=== PATIENT | male | born 1985 | race Caucasian/White ===

== ENCOUNTER → 2022-01-10 | Outpatient (CLI) | payer SELFPAY | LOC: M LABSMTC 09:04 | PROVIDERS: ATTEND Pediatrics | DX: Z20.822 Contact with and (suspected) exposure to COVID-19 (principal) ==

== ENCOUNTER → 2022-07-05 | Outpatient (CLI) | payer OTHER ==
[~2022-07-05] MED LIST: ISOVUE-300 61% 50ML VIAL As Ordered ONE; LIDOCAINE 1% MDV 20ML VIAL As Ordered ONE; PROHANCE 279.3MG/ML 5ML VIAL As Ordered ONE
== END ==
LOC: M RADPRO 06:52
PROVIDERS: ATTEND Physician Assistant
DX: M75.31 Calcific tendinitis of right shoulder (principal)
CPT/HCPCS: 23350; 73223; 77002; A9576; Q9967

== ENCOUNTER 2025-01-03 23:39 | Emergency (ER) | payer OTHER ==
[~2025-01-03] VITALS: Ht 175.3 cm; Wt 102.3 kg
[2025-01-04] MEDS: KETOROLAC 30 MG/ML 1ML VIAL IV ONE ×2 (00:03→12:13)
[2025-01-04 00:06] LABS: BASO # 0.1 10^3/uL (0.0-0.2); BASO % 0.6 % (0.0-1.0); EOS # 0.2 10^3/uL (0.0-0.5); EOS % 2.1 % (0.0-3.0); HEMATOCRIT 44.4 % (42.0-52.0); HEMOGLOBIN 15.3 g/dl (13.5-17.5); LYMPH # 2.1 10^3/uL (1.5-5.0); LYMPH % 22.1 % (24.0-44.0); MEAN CORPUSCULAR HEMOGLOBIN 31.2 pg (27.0-33.0); MEAN CORPUSCULAR HGB CONC 34.5 g/dl (32.0-36.5); MEAN CORPUSCULAR VOLUME 90.6 fl (80.0-96.0); MONO # 0.7 10^3/uL (0.0-0.8); MONO % 7.7 % (2.0-8.0); NEUTROPHILS # 6.4 10^3/uL (1.5-8.5); NEUTROPHILS % 67.2 % (36.0-66.0); PLATELET COUNT, AUTOMATED 324 10^3/uL (150-450); WHITE BLOOD COUNT 9.5 10^3/uL (4.0-10.0)
[2025-01-04 00:34] LABS: LIPASE 24 U/L (12-53)
[2025-01-04 00:36] LABS: ALBUMIN 4.3 G/DL (3.2-5.2); ALKALINE PHOSPHATASE 104 U/L (40-129); ALT/SGPT 104 U/L (7.0-40); AST/SGOT 34 U/L (<34); BILIRUBIN,DIRECT 0.3 MG/DL (<0.4); BILIRUBIN,TOTAL 0.8 MG/DL (0.3-1.2); BLOOD UREA NITROGEN 17 MG/DL (9-23); CALCIUM LEVEL 9.2 MG/DL (8.5-10.1); CARBON DIOXIDE LEVEL 27 MMOL/L (20-31); CHLORIDE LEVEL 103 MMOL/L (98-107); CREATININE FOR GFR 0.85 MG/DL (0.70-1.30); GLOMERULAR FILTRATION RATE > 60.0 (>60); GLUCOSE, FASTING 139 MG/DL (60-100); POTASSIUM SERUM 3.9 MMOL/L (3.5-5.1); SODIUM LEVEL 140 MMOL/L (136-145); TOTAL PROTEIN 7.5 G/DL (5.7-8.2)
[2025-01-04] MEDS: MORPHINE 4 MG/ML 1ML VIAL IV PRN ×2 (00:47→05:14)
[2025-01-04] MEDS: ONDANSETRON 4MG 2ML VIAL IV ONE (00:47)
[2025-01-04] MEDS: NS (Normal Saline) 0.9% 1,000 ML IV ONE (03:26)
[2025-01-04 06:31] VITALS: BP 148/78; TEMP 97.7; O2SAT 94
[2025-01-04] MEDS: NS 500 ML IV ONE (07:30)
[2025-01-04 09:45] LABS: KETONE, URINE AUTO RFX NEGATIVE (NEGATIVE); LEUKOCYTE ESTERASE UR AUTO RFX NEGATIVE (NEGATIVE); MUCUS, URINE RFX LARGE (NEGATIVE); NITRITE, URINE AUTO RFX NEGATIVE (NEGATIVE); RBC, URINE AUTO RFX TNTC /HPF (0-3); SQUAM EPITHELIAL CELL UR AURFX 0 /HPF (0-6); WBC, URINE AUTO RFX 8 /HPF (0-3); YEAST LIKE CELL URINE AUTO RFX SMALL
[2025-01-04] MEDS ORDERED: PERC5TAB12 PO (11:02)
[2025-01-04] MEDS ORDERED: IBUP80TA PO (11:02)
[2025-01-04] MEDS ORDERED: FLOM0.4C39 PO (11:02)
[2025-01-04] MEDS ORDERED: ONDA-282 PO (11:02)
[2025-01-04] MEDS: TAMSULOSIN 0.4 MG CAP PO ONE (12:13)
[2025-01-05] MEDS ORDERED: UNRESOLVED CLARIFICATION ENTRY XX SCH (00:01)
[2025-01-07] MEDS ORDERED: ONDA-282 PO (09:53)
[2025-01-07] MEDS ORDERED: ONDA-83 PO (09:53)
[2025-01-07] MEDS ORDERED: IBUP80TA PO (09:53)
[2025-01-07] MEDS ORDERED: FLOM0.4C39 PO (09:55)
[2025-01-07] MEDS ORDERED: PERCOCET PO (09:55)
[2025-01-07] MEDS ORDERED: RIZA10TA2 PO (09:58)
[2025-01-07] MEDS ORDERED: AMIT10TA7 PO (09:58)
[2025-01-07] MEDS ORDERED: DICL50TAB PO (09:58)
[2025-01-07] MEDS ORDERED: FLUTISP NARES (09:58)
== END 2025-01-04 12:19 | disposition home or self-care (01) ==
LOC: M ED 23:39
DX: N20.1 Calculus of ureter (principal); N23 Unspecified renal colic; Z79.83 Long term (current) use of bisphosphonates; Z79.1 Long term (current) use of non-steroidal anti-inflammatories (NSAID); Z79.899 Other long term (current) drug therapy
CPT/HCPCS: 74176; 80048; 80076; 81001; 83690; 85025; 96374; 96375; 96376; 99284; J1885; J2405

== ENCOUNTER → 2025-01-22 | Outpatient (CLI) | payer OTHER ==
[~2025-01-22] MED LIST changes: +AMIT10TA7 PO; +DICL50TAB PO; +FLOM0.4C39 PO; +FLUTISP NARES; +IBUP80TA PO; -ISOVUE-300 61% 50ML VIAL As Ordered ONE; -LIDOCAINE 1% MDV 20ML VIAL As Ordered ONE; +ONDA-282 PO; +ONDA-83 PO; +PERC5TAB12 PO; +PERCOCET PO; -PROHANCE 279.3MG/ML 5ML VIAL As Ordered ONE; +RIZA10TA2 PO
== END ==
LOC: M RAD 07:40
PROVIDERS: ATTEND Otolaryngology
DX: J32.9 Chronic sinusitis, unspecified (principal)